=== PATIENT | female | born 1965 | race Caucasian/White ===

== ENCOUNTER → 2016-12-07 | Outpatient (CLI) | payer OTHER ==
--- NOTE | ~2016-12-07 | CT3 ---
[facility] A Service of [facility] & [facility] RADIOLOGY TEXT RESULTS PATIENT: JEANETH BURRIS LOCATION: [facility]AT : 65 UNIT #: [id number] AGE: [address]: Seven Constantino MD SEX: F ORDER DR: [id number] [facility] [address]. [place], [place] [address] [id number] O MR#: [id number] Acc #: [id number] NAME: JEANETH BURRIS. : 1965 SEX: F STUDY DATE/TIME: 12/07/2016 15:54 UNIT: [facility] ROOM: STUDY DESCRIPTION: CT Abd and Pelv WWo Cont Attending Physician: Seven Constantino M.D. Referring Physician: Seven Constantino M.D. Ordering Physician: Seven Constantino M.D. Primary Care Physician: Ana Echeverria M.D. MEDICAL IMAGING REPORT This report is preliminary unless electronic signature is present EXAM CT of the abdomen and pelvis with and without contrast INDICATIONS Bilateral flank pain, right greater than left for 1 month microscopic hematuria. TECHNIQUE CT of the abdomen and pelvis was performed before and after the administration of IV contrast using multiphase protocol. Coronal and sagittal reformatted images were obtained. This CT exam was performed with one or more of the following radiation dose reduction techniques: automatic control, adjustment of mA and/or kV according to patient size, and iterative reconstruction. No comparisons. FINDINGS Lung bases are clear. Liver, gallbladder, and spleen are unremarkable. Noncontrast evaluation of the kidneys shows a tiny nonobstructing stone in the lower pole of the left kidney. Both of the kidneys demonstrates a neck and symmetric enhancement and excretion of contrast. There is no evidence for solid renal mass. There is no hydronephrosis. The adrenal glands and pancreas are unremarkable. PELVIS: Colon is unremarkable. The appendix is normal. Urinary bladder is unremarkable. The bone windows are unremarkable. IMPRESSION 1. Tiny nonobstructing stone in the lower pole of the left kidney. 2. No evidence for solid renal mass Dictated by... Edward Hartman M.D. [facility] A Service of [facility] & [facility] RADIOLOGY TEXT RESULTS PATIENT: JEANETH BURRIS LOCATION: [facility] : 65 UNIT #: [id number] AGE: [address]: Seven Constantino MD SEX: F ORDER DR: THIS IS AN ELECTRONICALLY VERIFIED REPORT Edward Hartman M.D. at 12/09/2016 7:09 AM TOI/rnr TD: 12/08/2016 12:58 JOB #: [id number] MEDICAL IMAGING REPORT Page 1 of 1 COPY
[2016-12-07 16:11] LABS: POC - CREATININE 0.73 mg/dL (0.44-1.03); POC - GFR >60.0 mL/min (>60)
== END | disposition home or self-care (01) ==
LOC: CCAT 15:09
PROVIDERS: Urology
DX: N20.0 Calculus of kidney (principal)
CPT/HCPCS: 74178; 82565; Q9967